=== PATIENT | female | born 1960 | race Caucasian/White ===

== ENCOUNTER 2017-01-26 08:00 | Outpatient (CLI) | payer OTHER | END 2017-01-26 08:01 | disposition home or self-care (01) | LOC: BICMAMMO 08:00 | PROVIDERS: ATTEND Family Medicine | DX: Z12.31 Encounter for screening mammogram for malignant neoplasm of breast (principal) | CPT/HCPCS: 77063 ==

== ENCOUNTER 2018-09-13 09:43 | Outpatient (CLI) | payer OTHER ==
--- NOTE | 2018-09-13 11:31 | MMO ---
Bilateral MAMMO Bilat Screen [facility]. CLINICAL HISTORY: Patient is 58 years old and is seen for screening. The patient has no family history of breast cancer. The patient has no personal history of cancer. The patient has a history of left Ultrasound Guided Core Biopsy in ? - benign. VIEWS: The views performed were: bilateral craniocaudal with tomosynthesis and bilateral mediolateral oblique with tomosynthesis. FILMS COMPARED: The present examination has been compared to prior imaging studies performed at [facility] on 01/26/2017, and at [facility] on 09/17/2003, 04/17/2004 and 05/05/2005. MAMMOGRAM FINDINGS: There are scattered fibroglandular densities. Benign calcifications are noted bilaterally. There are no suspicious masses, suspicious calcifications, or new areas of architectural distortion. IMPRESSION: THERE IS NO MAMMOGRAPHIC EVIDENCE OF MALIGNANCY. A ROUTINE FOLLOW-UP MAMMOGRAM IN 1 YEAR IS RECOMMENDED. THE RESULTS OF THIS EXAM WERE SENT TO THE PATIENT. ACR BI-RADS Category 2 - Benign finding MAMMOGRAPHY NOTE: 1. A negative mammogram report should not delay a biopsy if a dominant of clinically suspicious mass is present. 2. Approximately 10% to 15% of breast cancers are not detected by mammography. 3. Adenosis and dense breasts may obscure an underlying neoplasm. Reported by: NICOLE ROMO MD Electonically Signed: [id number]
== END 2018-09-13 09:44 | disposition home or self-care (01) ==
LOC: BICMAMMO 09:43
PROVIDERS: ATTEND Family Medicine
DX: Z12.31 Encounter for screening mammogram for malignant neoplasm of breast (principal)
CPT/HCPCS: 77063; 77067

== ENCOUNTER 2019-03-22 07:58 | Outpatient (CLI) | payer MEDICARE, OTHER ==
--- NOTE | 2019-03-22 11:21 | CT ---
CT ANGIOGRAM OF ABDOMEN AND PELVIS WITH IV CONTRAST: Multiple axial tomograms were obtained through the abdomen and pelvis following an aortogram protocol with multiplanar reconstruction. A venous phase study of the abdomen and pelvis was also obtained. INDICATION: Abdominal pain and weight loss. History of diabetes and peripheral vascular disease. FINDINGS: Review of the aortogram shows mild atherosclerotic changes involving the abdominal aorta with atheros clerotic calcification and mild soft plaque. No aneurysmal dilatation. No evidence of dissection. Major aortic branches including celiac artery, superior mesenteric artery, and renal arteries are pat ent with no evidence of stenosis. The aortic bifurcation is patent. The visualized iliac arteries a nd common femoral arteries appear unremarkable. Images were obtained through the upper thighs and th e profunda femoral and visualized superficial femoral arteries are also unremarkable with no evidence of focal stenosis. Review of the venous phase study shows unremarkable lung bases. The liver, spleen, and pancreas appear unremarkable. Adrenal glands normal. Kidneys unremarkable. Small bowel loops appear normal. Cecum resides in the midline of the upper abdomen. The visualized appendix is unremarkable. Prominent stool throughout the colon may indicate constipation. Scattered diverticula without evidence of diverticulitis. Images through the pelvis show mildly distended bladder. There is mild urinary bladder wall thickeni ng. There is evidence of hysterectomy. No adenopathy. Osseous structures unremarkable. IMPRESSION: 1. Question urinary bladder wall thickening. 2. No acute intraabdominal or pelvic process identified. POS: TPC
[2019-03-22] MEDS ORDERED: Iopamidol 370 76% 100 ML VIAL ONE (14:36)
== END 2019-03-22 07:59 | disposition home or self-care (01) ==
LOC: CT 07:58
PROVIDERS: ATTEND Internal Medicine Gastroenterology
DX: Z12.11 Encounter for screening for malignant neoplasm of colon (principal); E11.9 Type 2 diabetes mellitus without complications; R10.84 Generalized abdominal pain; K59.00 Constipation, unspecified; R63.4 Abnormal weight loss; R10.13 Epigastric pain; R11.2 Nausea with vomiting, unspecified
CPT/HCPCS: 74174; Q9967

== ENCOUNTER 2019-04-23 07:35 | Outpatient (CLI) | payer MEDICARE ==
--- NOTE | 2019-04-23 13:11 | NM ---
RADIONUCLIDE GASTRIC EMPTYING SCAN: Date: 04/23/2019 HISTORY: Nausea and vomiting, unspecified. Abnormal weight loss. Epigastric pain. RADIOPHARMACEUTICAL: 2.1 mCi technetium-99m sulfur colloid administered orally in scrambled eggs. ' FINDINGS: There is 38% emptying of the ingested gastric contents at 1 hour, 49% emptying at 2 hours, 67% emptyi ng at 3 hours, and 95% emptying at 4 hours. IMPRESSION: Normal exam. POS: OFF
== END 2019-04-23 07:36 | disposition home or self-care (01) ==
LOC: NM 07:35
PROVIDERS: ATTEND Internal Medicine Gastroenterology
DX: R11.2 Nausea with vomiting, unspecified (principal); R63.4 Abnormal weight loss; R10.13 Epigastric pain
CPT/HCPCS: 78264; A9541

== ENCOUNTER 2020-03-12 09:50 | Outpatient (CLI) | payer MEDICARE ==
--- NOTE | 2020-03-12 10:39 | MMO ---
Bilateral MAMMO Bilat Screen [facility]. CLINICAL HISTORY: Patient is 59 years old and is seen for screening. The patient has no family history of breast cancer. The patient has no personal history of cancer. The patient has a history of left Ultrasound Guided Core Biopsy in ? - benign. VIEWS: The views performed were: bilateral craniocaudal with tomosynthesis and bilateral mediolateral oblique with tomosynthesis. FILMS COMPARED: The present examination has been compared to prior imaging studies performed at [facility] on 01/26/2017 and 09/13/2018, and at [facility] on 04/17/2004 and 05/05/2005. This study has been interpreted with the assistance of computer-aided detection. MAMMOGRAM FINDINGS: There are scattered fibroglandular densities. There are no suspicious masses, suspicious calcifications, or new areas of architectural distortion. IMPRESSION: THERE IS NO MAMMOGRAPHIC EVIDENCE OF MALIGNANCY. A ROUTINE FOLLOW-UP MAMMOGRAM IN 1 YEAR IS RECOMMENDED. THE RESULTS OF THIS EXAM WERE SENT TO THE PATIENT. ACR BI-RADS Category 1 - Negative MAMMOGRAPHY NOTE: 1. A negative mammogram report should not delay a biopsy if a dominant of clinically suspicious mass is present. 2. Approximately 10% to 15% of breast cancers are not detected by mammography. 3. Adenosis and dense breasts may obscure an underlying neoplasm. Reported by: MARQUIS CAMACHO MD Electonically Signed: [id number]
== END 2020-03-12 09:51 | disposition home or self-care (01) ==
LOC: BICMAMMO 09:50
PROVIDERS: ATTEND Family Medicine
DX: Z12.31 Encounter for screening mammogram for malignant neoplasm of breast (principal); Z91.89 Other specified personal risk factors, not elsewhere classified
CPT/HCPCS: 77063; 77067

== ENCOUNTER 2021-02-26 19:00 | Outpatient (CLI) | payer MEDICARE | END 2021-02-26 19:01 | disposition home or self-care (01) | LOC: SLEEPLAB 19:00 | PROVIDERS: ATTEND Family Medicine | DX: G47.33 Obstructive sleep apnea (adult) (pediatric) (principal); R53.83 Other fatigue; R09.89 Other specified symptoms and signs involving the circulatory and respiratory systems; K21.9 Gastro-esophageal reflux disease without esophagitis; I11.0 Hypertensive heart disease with heart failure; I50.9 Heart failure, unspecified; R06.83 Snoring; G47.10 Hypersomnia, unspecified; F41.9 Anxiety disorder, unspecified; F32.9 Major depressive disorder, single episode, unspecified; G47.00 Insomnia, unspecified; R35.1 Nocturia; I21.9 Acute myocardial infarction, unspecified; I25.10 Atherosclerotic heart disease of native coronary artery without angina pectoris; E11.9 Type 2 diabetes mellitus without complications; E66.9 Obesity, unspecified; Z68.36 Body mass index [BMI] 36.0-36.9, adult | CPT/HCPCS: 95810 ==

== ENCOUNTER 2021-03-06 13:23 | Outpatient (CLI) | payer MEDICARE | END 2021-03-06 13:24 | disposition home or self-care (01) | LOC: BICRAD 13:23 | PROVIDERS: ATTEND Family Medicine | DX: W10.8XXS Fall (on) (from) other stairs and steps, sequela (principal) ==

== ENCOUNTER 2021-10-30 13:40 | Outpatient (CLI) | payer OTHER | END 2021-10-30 13:41 | disposition home or self-care (01) | LOC: CT 13:40 | PROVIDERS: ATTEND Family Medicine | DX: S00.03XA Contusion of scalp, initial encounter (principal) | CPT/HCPCS: 70450 ==